=== PATIENT | female | born 1955 | race Caucasian/White ===

== ENCOUNTER 2017-10-26 19:15 | Emergency (ER) | payer OTHER, SELFPAY ==
[~2017-10-26] VITALS: Ht 157.5 cm; Wt 57.7 kg
[2017-10-26] MEDS ORDERED: LORazepam 2 MG/ML, 1ML IM ONE (19:30)
[2017-10-26] MEDS ORDERED: ONDANSETRON ODT 4 MG PO ONE (19:30)
[2017-10-26 19:50] LABS: BASOPHILS # (AUTO) 0.02 x10^3/uL (0-0.1); BASOPHILS % (AUTO) 0 % (0-1); EOSINOPHILS # (AUTO) 0.06 x10^3/uL (0-0.4); EOSINOPHILS % (AUTO) 1 % (1-7); LYMPHOCYTES # (AUTO) 3.16 x10^3/uL (1-3.4); LYMPHOCYTES % (AUTO) 27 % (22-44); MD NO; MEAN CORPUSCULAR HGB CONC 34.2 g/dL (32.4-35.8); MEAN CORPUSCULAR VOLUME 93.6 fL (80-100); MEAN PLATELET VOLUME 8.4 fL (7.4-10.4); MONOCYTES % (AUTO) 8 % (2-9); NEUTROPHILS # (AUTO) 7.67 x10^3/uL (1.8-6.8); NEUTROPHILS % (AUTO) 65 % (42-75); PLATELET COUNT 308 x10^3/uL (130-400); RED BLOOD COUNT 5.55 x10^6/uL (3.82-5.3); RED CELL DISTRIBUTION WIDTH 13.9 % (9.6-15.2)
[2017-10-26 19:57] LABS: ANION GAP 11 mmol/L (5-15); CALCIUM 9.1 mg/dL (8.5-10.1); CHLORIDE 106 mmol/L (98-107); CREATININE 0.98 mg/dL (0.55-1.02)
[2017-10-26] MEDS ORDERED: ONDANSETRON ODT 4 MG ONE (20:00)
[2017-10-26] MEDS ORDERED: LORazepam 2 MG/ML, 1ML ONE (20:01)
[2017-10-26 20:31] VITALS: BP 142/94
== END 2017-10-26 20:45 | disposition home or self-care (01) ==
LOC: ED 20:40
DX: F11.23 Opioid dependence with withdrawal (principal); F13.20 Sedative, hypnotic or anxiolytic dependence, uncomplicated; I10 Essential (primary) hypertension; M79.7 Fibromyalgia; G89.29 Other chronic pain
CPT/HCPCS: 36415; 80048; 82040; 85025; 96372; 99284; J2060; Q0162